=== PATIENT | male | born 1965 | race Caucasian/White ===

== ENCOUNTER 2016-10-21 17:34 | Emergency (ER) | payer OTHER ==
[2016-10-21 17:46] VITALS: BP 140/76; PULSE 97; RESP 18; TEMP 97.7
--- NOTE | 2016-10-21 17:57 | ED ---
General Adult HPI - General Chief complaint: Extremity Injury, Lower Stated complaint: Fall, ankle pain Time Seen by Provider: 10/21/16 17:35 Source: patient, RN notes reviewed Mode of arrival: ambulatory Limitations: no limitations - History of Present Illness Initial comments: This is a 51-year-old male presents with right ankle pain after his foot fell through a pallet today at work. Patient states he was walking when the pallet broke. Patient states he pulled a splinter out of the lateral aspect of his right ankle. Patient states he is able to ambulate but it's slightly painful. Patient states she is concerned that there may be more wood stuck in his ankle. Patient is up-to-date on his tetanus shot. Patient denies any numbness/ tingling or weakness.Patient denies any recent fever, chills, shortness breath, chest pain, abdominal pain, nausea/vomiting/diarrhea, back pain, hematuria, headache, or visual changes, or any other complaints. - Related Data Home Medications Medication Instructions Recorded Confirmed Metoprolol Tartrate 25 mg PO BID 08/27/14 10/21/16 Disulfiram 250 mg PO DAILY 01/03/16 10/21/16 Disulfiram 500 mg PO DAILY 01/03/16 10/21/16 traMADol HCL [Ultram] 100 mg PO Q6H PRN 01/03/16 10/21/16 Previous Rx's Medication Instructions Recorded Diazepam [Valium] 5 mg PO DIRECTED #15 tab 01/03/16 Famotidine [Pepcid] 20 mg PO BID #60 tablet 01/03/16 Cephalexin [Keflex] 500 mg PO Q12HR 5 Days 10/21/16 Allergies Allergy/AdvReac Type Severity Reaction Status Date / Time No Known Allergies Allergy Verified 10/21/16 17:48 Review of Systems ROS Statement: Those systems with pertinent positive or pertinent negative responses have been documented in the HPI. ROS Other: All systems not noted in ROS Statement are negative. Past Medical History Past Medical History: Hypertension, Osteoarthritis (OA) Additional Past Medical History / Comment(s): SOME LIVER DAMAGE FROM HX OF ALCOHOL ABUSE, SCIATICA. History of Any Multi-Drug Resistant Organisms: None Reported Past Surgical History: Appendectomy, Hernia Repair, Orthopedic Surgery Additional Past Surgical History / Comment(s): rt wrist (fx) with surgical repair, repair of aneurysm left carotid artery (age 2), Left knee athroscopy x 2 , Umbilical Hernia (Aug 2014). Past Anesthesia/Blood Transfusion Reactions: No Reported Reaction Past Psychological History: Anxiety, Depression Additional Psychological History / Comment(s): Pt states he is on medication for anxiety. He states it helps somewhat. Pt lives with his mother. He is independent. He drives. Smoking Status: Current every day smoker Past Alcohol Use History: Daily, Heavy Additional Past Alcohol Use History / Comment(s): HX OF ALCOHOL ABUSE-last drank 01/03/16. Pt started smoking at age 16 yrs and smokes between 1 1/2 to 2 ppd. Past Drug Use History: None Reported - Past Family History Father Family Medical History: Coronary Artery Disease (CAD), Dementia, Hypertension Additional Family Medical History / Comment(s): Father at age 74 yrs. Mother Family Medical History: No Reported History Additional Family Medical History / Comment(s): Mother is healthy and is 78 yrs. old. Sister(s) Family Medical History: Cancer Additional Family Medical History / Comment(s): BREAST CA General Exam - General Exam Comments Initial Comments: General: The patient is awake and alert, in no distress, and does not appear acutely ill. Neck: The neck is supple, there is no tenderness or JVD. Cardiovascular: There is a regular rate and rhythm. No murmur, rub or gallop is appreciated. Respiratory: Lungs are clear to auscultation, respirations are non-labored, breath sounds are equal. No wheezes, stridor, rales, or rhonchi. Musculoskeletal: There is tenderness to palpation over the lateral aspect of the right ankle. There is no ecchymosis, swelling or erythema. Full range of motion, strength 5/5 and Sensation intact. Posterior tibial and dorsalis pedis pulses are 2+ bilaterally. Neurological: A&O x 3. CN II-XII intact, There are no obvious motor or sensory deficits. Coordination appears grossly intact. Speech is normal. Skin: There is an approximately 0.5 puncture wound with surrounding abrasion to the lateral aspect of the right ankle. No foreign body visualized. Skin is warm and dry and no rashes or lesions are noted. Psychiatric: Normal mood and affect. Limitations: no limitations Course Vital Signs 10/21/16 17:39 Temperature 97.7 F Pulse Rate 97 Respiratory 18 Rate Blood Pressure 140/76 O2 Sat by Pulse 97 Oximetry Medical Decision Making - Medical Decision Making This is a 51-year-old male presents with right ankle pain after falling through a pallet today. On physical exam there is approximately 0.5cm puncture wound with surrounding abrasion to the lateral aspect of the right ankle. There is tenderness to palpation over the lateral aspect of the right ankle. There is no ecchymosis, swelling or erythema. Full range of motion, strength 5/5 and Sensation intact. Posterior tibial and dorsalis pedis pulses are 2+ bilaterally. An x-ray of the right ankle is done and reviewed showing:Negative right ankle exam. Reported by Dr. Kelsey. The wound was flushed and cleansed with normal saline. No foreign body noted. Steri strips were applied over the wound. Discussed Neosporin to the area. I discussed signs and symptoms of infection. I discussed rest, ice, elevate and Tylenol/Motrin for pain. Patient states he takes tramadol at home. I discussed occult fracture. I discussed Aircast for possible ankle sprain but patient refused this and patient also refused an Yousif wrap. I discussed return parameters. Patient is up-to-date on his tetanus shot.Discussed that patient should follow up with PCP in one to 2 days or return to the EC for any worsening symptoms or for any further concerns. Patient was receptive to this plan and patient will be discharged home. Disposition Clinical Impression: Ankle sprain, Puncture wound Disposition: HOME SELF-CARE Condition: Good Instructions: Ankle Sprain (ED), Puncture Wound (ED) Additional Instructions: Please rest, ice, elevate and use Tylenol or Motrin for pain. Please finish entire course of antibiotics and keep Neosporin on the wound. Please keep wound clean and dry and covered.If symptoms do not improve in the next 7 days repeat x-rays may be needed to rule out occult fracture.Please use medication as discussed. Please follow-up with family doctor in the next 2 days of symptoms have not improved. Please return to emergency room if the symptoms increase or worsen or for any other concerns. Prescriptions: Cephalexin [Keflex] 500 mg PO Q12HR 5 Days Referrals: Nick Martinez DO [Primary Care Provider] - 1-2 days Time of Disposition: 18:15
--- NOTE | 2016-10-21 18:07 | XR ---
EXAMINATION TYPE: XR ankle complete RT DATE OF EXAM: 10/21/2016 6:02 PM COMPARISON: NONE HISTORY: Pain TECHNIQUE: 3 views FINDINGS: Ankle mortise is anatomic. I see no fracture nor dislocation. Joint spaces are normal. IMPRESSION: Negative right ankle exam.
== END 2016-10-21 18:22 | disposition home or self-care (01) ==
LOC: EC 17:34
DX: S93.401A Sprain of unspecified ligament of right ankle, initial encounter (principal); S91.031A Puncture wound without foreign body, right ankle, initial encounter; W17.89XA Other fall from one level to another, initial encounter; Y99.0 Civilian activity done for income or pay; F41.9 Anxiety disorder, unspecified; I10 Essential (primary) hypertension; F17.200 Nicotine dependence, unspecified, uncomplicated; Z79.899 Other long term (current) drug therapy
CPT/HCPCS: 99283

== ENCOUNTER 2017-03-07 06:28 | Day surgery (SDC) | payer OTHER ==
[2017-03-05 14:22] VITALS: BMI 23.6
[~2017-03-07 06:28] MED LIST: LACTATED RINGERS 1,000 ML IV SCH; LIDOCAINE 1% 20 ML VIAL (10MG/ML) FOR IV START INTRADERMA PRN; MOXIFLOXACIN HCL 0.5% DROPS 3 ML BTL OP ONE; TETRACAINE 0.5% OPHTH (PF) DROPS 4 ML BTL OP ONE; TIMOLOL 0.5% OPHTH SOLN (PF) 0.2 ML DROPERETTE OP ONE
[2017-03-07 06:42] VITALS: RESP 16; TEMP 98
[2017-03-07] MEDS: PHENYLEPHRINE 2.5% OPHTH DRP 2ML OP NR ×3 (06:57→07:07)
[2017-03-07] MEDS: CYCLOPENTOLATE 1% OPHTH SOLN 2 ML BTL OP ONE ×3 (07:00→07:09)
[2017-03-07] MEDS ORDERED: MIDAZOLAM 2 MG/2 ML VIAL ONE (07:21)
[2017-03-07] MEDS ORDERED: fentaNYL (PF) 50 MCG/ML 2 ML AMP ONE (07:21)
[2017-03-07] MEDS ORDERED: EPINEPHrine (PF) 0.3 ML in BALANCED SALT IRRIG SOLN COMB2 500 ML IRRIGATION ONE (07:22)
[2017-03-07] MEDS ORDERED: DUOVISC KIT (GREEN BOX) INTRAOCULA ONE (07:28)
[2017-03-07] MEDS ORDERED: LIDOCAINE 1% (PF) 10MG/ML VIAL MISCELLANE ONE (07:28)
[2017-03-07] MEDS ORDERED: BALANCED SALT IRRIG SOLN COMB2 15 ML IRRIG.SOLN INTRAOCULA ONE (07:28)
--- NOTE | 2017-03-07 07:54 | P.OP ---
Date of Procedure: 03/07/17 Preoperative Diagnosis: NS & PSC Postoperative Diagnosis: same Procedure(s) Performed: PIOL OS Implants: PCB0 27.00 Anesthesia: MAC Surgeon: Fredy Pascal Estimated Blood Loss (ml): 0 Pathology: none sent Condition: stable Disposition: same day Indications for Procedure: blurry vision Operative Findings: no complications Description of Procedure:
[2017-03-07 08:12] VITALS: BP 132/85; PULSE 93
--- NOTE | 2017-03-08 11:13 | OP ---
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 POSTOPERATIVE DIAGNOSIS: Same. OPERATION: Phacoemulsification of cataract and intraocular lens implant to the left eye. ESTIMATED BLOOD LOSS: Zero. SPECIMEN TAKEN: None. NARRATIVE: After obtaining the appropriate consent, the patient was brought to the Operating Room where the patient was placed under cardiac monitoring and prepped and draped in the usual sterile manner. At the 11 oclock position a 15 degree super sharp blade was used to create a paracentesis followed by instillation of 1% Xylocaine MPF 50:50 mix with BSS into the anterior chamber. This was followed by Duovisc to stabilize the anterior chamber. At the 9 o clock position a self-sealing corneal flap incision was created using 2.8 mm lina keratome. A cystatome was used to initiate a continuous tear capsulorrhexis which was completed with the Utrata forceps. A Binkhorst cannula was used to hydrodissect the lens nucleus followed by hydrodelineation. Phacoemulsification of the lens was performed utilizing phacochop in 1.15 seconds at 7% power. The remaining cortical material was removed using the irrigation aspiration mode followed by additional 1% Xylocaine MPF into the anterior chamber followed by viscoelastic to stabilize the capsular bag. An [id number] 27.0 diopters posterior chamber lens was placed into the capsular bag without difficulty. The remaining viscoelastic material was removed from the anterior chamber with the irrigation/aspiration. Balanced salt solution was used to normalize the intraocular pressure. The incision was checked for watertight integrity. The patient then received two drops of 0.5% timolol followed by two drops Vigamox, was lightly patched and shielded in the usual manner. There were no complications from the procedure. The patient tolerated the procedure well and was returned to recovery in good condition. JANICE
== END 2017-03-07 08:39 | disposition home or self-care (01) ==
LOC: OR 06:28
PROVIDERS: ATTEND Ophthalmology
DX: H25.12 Age-related nuclear cataract, left eye (principal); H25.042 Posterior subcapsular polar age-related cataract, left eye; H53.142 Visual discomfort, left eye; H18.51 Endothelial corneal dystrophy; I10 Essential (primary) hypertension; F41.9 Anxiety disorder, unspecified; F32.9 Major depressive disorder, single episode, unspecified; M19.90 Unspecified osteoarthritis, unspecified site; F17.200 Nicotine dependence, unspecified, uncomplicated; Z79.891 Long term (current) use of opiate analgesic; Z79.899 Other long term (current) drug therapy
CPT/HCPCS: 66984; J2250; J0171; J3010; J2001

== ENCOUNTER 2017-03-27 00:06 | Emergency (ER) | payer OTHER ==
[2017-03-27] MEDS ORDERED: SODIUM CHLORIDE 0.9% 2,000 ML IV STA (00:18)
[2017-03-27] MEDS ORDERED: KETOROLAC 30 MG/ML 1 ML VIAL IVP STA (00:18)
[2017-03-27] MEDS ORDERED: MORPHINE SULFATE 4 MG/ML SYRINGE IV STA (00:18)
[2017-03-27 00:54] LABS: Basophils % (A) 0 %; CH 30.6; CHCM 34.2; Eosinophils # (A) 0.1 k/uL (0-0.7); Eosinophils % (A) 1 %; HCT 46.8 % (39.0-53.0); HDW 2.67; HGB 15.1 gm/dL (13.0-17.5); Luc # (Auto) 0.32; Luc % (Auto) 3; Lymphocytes # (A) 1.5 k/uL (1.0-4.8); Lymphocytes % (A) 16 %; MCHC 32.2 g/dL (31.0-37.0); MCV 90.1 fL (80.0-100.0); Mean Platelet Volume 7.1; Monocytes # (A) 0.7 k/uL (0-1.0); Monocytes % (A) 7 %; Neutrophils % (A) 72 %; RDW 15.3 % (11.5-15.5); WBC 9.6 k/uL (3.8-10.6)
[2017-03-27 01:04] LABS: ALT 33 U/L (21-72); AST 32 U/L (17-59); Alkaline Phosphatase 131 U/L (38-126); Amylase <30 U/L (30-110); Anion Gap 13 mmol/L; Blood Urea Nitrogen 23 mg/dL (9-20); Calcium 9.3 mg/dL (8.4-10.2); Carbon Dioxide 26 mmol/L (22-30); Chloride 100 mmol/L (98-107); Glucose 86 mg/dL (74-99); Non-African American GFR(MDRD) >60 (>60 ml/min/1.73 sqM); Potassium 3.4 mmol/L (3.5-5.1); Sodium 139 mmol/L (137-145); Total Protein 6.8 g/dL (6.3-8.2)
--- NOTE | 2017-03-27 01:12 | XR ---
EXAM: XR Abdomen Complete, 2 or More Views CLINICAL HISTORY: Reason: Pain TECHNIQUE: Frontal view of the abdomen/pelvis with upright view of the abdomen. COMPARISON: 01/02/16 FINDINGS: Intraperitoneal space: Prominent focal hyperdensity seen within the right pelvis, possibly vascular calcification. Gastrointestinal tract: Unremarkable. No dilation. Bones/joints: Multilevel degenerative changes of the spine. IMPRESSION: Prominent focal hyperdensity seen within the right pelvis, possibly vascular calcification.
[2017-03-27 02:11] VITALS: RESP 18
[2017-03-27] MEDS ORDERED: HYDROmorphone 1 MG/ML 1 ML SYRINGE IVP STA (02:16)
[2017-03-27 02:58] LABS: Appearance,Urine Clear (Clear); Bilirubin,Urine 1+ (Negative); Glucose,Urine (UA) Negative (Negative); Leukocyte Esterase,Urine Negative (Negative); Nitrite,Urine Negative (Negative); Protein,Urine Trace (Negative); Specific Gravity,Urine 1.018 (1.001-1.035); UA Billing (MACRO vs. MICRO) CHEM; Urobilinogen,Urine <2.0 mg/dL (<2.0)
[2017-03-27] MEDS ORDERED: RX INFO: IV CONTRAST WAS GIVEN 1 EACH MISC MISCELLANE PRN (03:04)
[2017-03-27 03:36] VITALS: PULSE 81
[2017-03-27 03:46] LABS: Ketones,Urine 2+ (Negative)
--- NOTE | 2017-03-27 03:56 | CT ---
EXAM: CT Abdomen and Pelvis With Intravenous Contrast CLINICAL HISTORY: Reason: Right flank abd pain, dark colored urine, possible dehydration, hx of umbilical hernia repair and appy TECHNIQUE: Axial computed tomography images of the abdomen and pelvis with intravenous contrast. CTDI is 5.3 mGy and DLP is 257.4 mGy-cm. Axial delayed images were also obtained. CTDI is 5.3 mGy and DLP is 133.2 mGy- cm. This CT exam was performed using one or more of the following dose reduction techniques: automated exposure control, adjustment of the mA and/or kV according to patient size, and/or use of iterative reconstruction technique. Coronal and sagittal reformatted images were created and reviewed. COMPARISON: CT 12/29/15 FINDINGS: Lower thorax: Bibasilar atelectasis. ABDOMEN: Liver: Unremarkable. No mass. Gallbladder and bile ducts: Unremarkable. No calcified stones. No ductal dilation. Pancreas: Unremarkable. No mass. No ductal dilation. Spleen: Unremarkable. No splenomegaly. Adrenals: Unremarkable. No mass. Kidneys and ureters: Unremarkable. No solid mass. No hydronephrosis. Stomach and bowel: Few colonic diverticula without diverticulosis. Appendix: Surgical clips from previous appendectomy. PELVIS: Bladder: Mild thickening possibly due to underdistention. No mass. Reproductive: Unremarkable as visualized. ABDOMEN and PELVIS: Intraperitoneal space: Unremarkable. No free air. No significant fluid collection. Bones/joints: Multilevel degenerative changes of the spine. Prominent disc disease seen at L3/L4 and L4/L5 causing a degree of central stenosis. Soft tissues: Unremarkable. 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 Extensive atherosclerosis. Lymph nodes: Unremarkable. No enlarged lymph nodes. IMPRESSION: 1. 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 2. Multilevel degenerative changes of the spine. Prominent disc disease seen at L3/L4 and L4/L5 causing a degree of central stenosis. 3. Few colonic diverticula without diverticulosis. 4. Mild bladder thickening possibly due to underdistention. Correlate for cystitis.
[2017-03-27] MEDS ORDERED: MAG HYDROX/AL HYDROX/SIMETH 30 ML, HYOSCYAMINE ELIXIR 10 ML, CIMETIDINE HCL 300 MG, LID... PO STA ×4 (04:39)
--- NOTE | 2017-03-27 04:40 | ED ---
Abdominal Pain HPI - General Chief Complaint: Abdominal Pain Stated Complaint: dehydration Time Seen by Provider: 03/27/17 00:18 Source: patient, RN notes reviewed, old records reviewed Mode of arrival: EMS Limitations: no limitations - History of Present Illness Initial Comments: This is a 51 year old male presenting via EMS with CC of dehydration. Patient reports that he has not been having an appetitie for 2 weeks. He reports that he noticed that he was producing dark urine over the past day. Denies vomiting or diarrhea, patient reports that he started to develop abdominal pain yesterday. Patient reports that he is under some stress at home, and that he has probably been taking too much of his pain medication. He reports he was a previous alcoholic, and has been recovering for the past year. Patient states that he has no fever, chills, chest pain, shortness of breath. His abodiminal pain is in RUQ and occasionally radites to the back. Denies any surgical history. - Related Data Home Medications Medication Instructions Recorded Confirmed Metoprolol Tartrate 25 mg PO BID 08/27/14 03/27/17 Disulfiram 250 mg PO 1200 01/03/16 03/27/17 traMADol HCL [Ultram] 50 mg PO Q6H PRN 01/03/16 03/27/17 Gabapentin [Neurontin] 800 mg PO TID 03/05/17 03/27/17 Previous Rx's Medication Instructions Recorded Omeprazole 40 mg PO DAILY #20 capsule. 03/27/17 Allergies Allergy/AdvReac Type Severity Reaction Status Date / Time No Known Allergies Allergy Verified 03/27/17 00:14 Review of Systems ROS Statement: Those systems with pertinent positive or pertinent negative responses have been documented in the HPI. ROS Other: All systems not noted in ROS Statement are negative. Past Medical History Past Medical History: Hypertension, Osteoarthritis (OA) Additional Past Medical History / Comment(s): SOME LIVER DAMAGE FROM HX OF ALCOHOL ABUSE, SCIATICA. History of Any Multi-Drug Resistant Organisms: None Reported Past Surgical History: Appendectomy, Hernia Repair, Orthopedic Surgery Additional Past Surgical History / Comment(s): rt wrist (fx) with surgical repair, repair of aneurysm left carotid artery (age 2), Left knee athroscopy x 2 , Umbilical Hernia (Aug 2014). Past Anesthesia/Blood Transfusion Reactions: No Reported Reaction Past Psychological History: Anxiety, Depression Smoking Status: Current every day smoker Past Alcohol Use History: None Reported Past Drug Use History: None Reported - Past Family History Father Family Medical History: Coronary Artery Disease (CAD), Dementia, Hypertension Additional Family Medical History / Comment(s): Father at age 74 yrs. Mother Family Medical History: No Reported History Additional Family Medical History / Comment(s): Mother is healthy and is 78 yrs. old. Sister(s) Family Medical History: Cancer Additional Family Medical History / Comment(s): BREAST CA General Exam - General Exam Comments Initial Comments: Patient is a 51 year old male, no distress. Limitations: no limitations General appearance: alert, in no apparent distress Head exam: Present: atraumatic, normocephalic, normal inspection Eye exam: Present: normal appearance, PERRL, EOMI. Absent: scleral icterus, conjunctival injection, periorbital swelling ENT exam: Present: normal exam, mucous membranes moist Neck exam: Present: normal inspection. Absent: tenderness, meningismus, lymphadenopathy Respiratory exam: Present: normal lung sounds bilaterally. Absent: respiratory distress, wheezes, rales, rhonchi, stridor Cardiovascular Exam: Present: regular rate, normal rhythm, normal heart sounds. Absent: systolic murmur, diastolic murmur, rubs, gallop, clicks GI/Abdominal exam: Present: soft, tenderness (RUQ tenderness and epigastric tenderness. ), normal bowel sounds. Absent: distended, guarding, rebound, rigid Extremities exam: Present: normal inspection, full ROM, normal capillary refill. Absent: tenderness, pedal edema, joint swelling, calf tenderness Back exam: Present: normal inspection Neurological exam: Present: alert, oriented X3, CN II-XII intact Psychiatric exam: Present: normal affect, normal mood Skin exam: Present: warm, dry, intact, normal color. Absent: rash Course Vital Signs 03/27/17 03/27/17 03/27/17 00:11 02:10 03:35 Temperature 97.2 F L Pulse Rate 94 80 81 Respiratory 16 18 18 Rate Blood Pressure 144/93 165/102 166/97 O2 Sat by Pulse 95 94 L 97 Oximetry 03/27/17 05:23 Temperature 97.1 F L Pulse Rate 81 Respiratory 18 Rate Blood Pressure 166/99 O2 Sat by Pulse 95 Oximetry Medical Decision Making - Medical Decision Making This is a 51 year old male presenting via EMS with CC of dehydration. Patient reports that he has not been having an appetitie for 2 weeks. He reports that he noticed that he was producing dark urine over the past day. Denies vomiting or diarrhea, patient reports that he started to develop abdominal pain yesterday. Patient received IV fluids, lab work obtained. Patient given 2L of fluids. He is tender over R. flank and RUQ area. Patient labs were benign, however he does have bilirubin in urine. Patient CT abdomen and pelvis was reviewed. CT shows Mild to moderate stenosis of left common iliac artery, Degenerative changes of the spine, prominent disc disease L3/L4 and L4/L5. Few diverticula, without diverticulitis. Bladder thickening due to under distention. There is no CT finding correlating with patient symptoms. Toward the end of EC stay, Patient relates that he has been taking too much pain medication over the past few days. I believe that patient pain is likely related to gastric or duodenal ulcer, patient given GI cocktail, and will be discharged with omeprazole. Instructed clear liquies and follow up with PCP tomorrow. Return parameters discussed. - Lab Data Result diagrams: 03/27/17 00:43 03/27/17 00:43 Lab Results 03/27/17 03/27/17 03/27/17 Range/Units 00:43 00:43 02:38 WBC 9.6 (3.8-10.6) k/uL RBC 5.20 (4.30-5.90) m/uL Hgb 15.1 (13.0-17.5) gm/dL Hct 46.8 (39.0-53.0) % MCV 90.1 (80.0-100.0) fL MCH 29.0 (25.0-35.0) pg MCHC 32.2 (31.0-37.0) g/dL RDW 15.3 (11.5-15.5) % Plt Count 383 (150-450) k/uL Neutrophils % 72 % Lymphocytes % 16 % Monocytes % 7 % Eosinophils % 1 % Basophils % 0 % Neutrophils # 7.0 (1.3-7.7) k/uL Lymphocytes # 1.5 (1.0-4.8) k/uL Monocytes # 0.7 (0-1.0) k/uL Eosinophils # 0.1 (0-0.7) k/uL Basophils # 0.0 (0-0.2) k/uL Sodium 139 (137-145) mmol/L Potassium 3.4 L (3.5-5.1) mmol/L Chloride 100 (98-107) mmol/L Carbon Dioxide 26 (22-30) mmol/L Anion Gap 13 mmol/L BUN 23 H (9-20) mg/dL Creatinine 0.70 (0.66-1.25) mg/dL Est GFR (MDRD) Af Amer >60 (>60 ml/min/1.73 sqM) Est GFR (MDRD) Non-Af >60 (>60 ml/min/1.73 sqM) Glucose 86 (74-99) mg/dL Calcium 9.3 (8.4-10.2) mg/dL Total Bilirubin 1.0 (0.2-1.3) mg/dL AST 32 (17-59) U/L ALT 33 (21-72) U/L Alkaline Phosphatase 131 H (38-126) U/L Total Protein 6.8 (6.3-8.2) g/dL Albumin 3.9 (3.5-5.0) g/dL Amylase <30 L (30-110) U/L Lipase 17 L (23-300) U/L Urine Color Yellow Urine Appearance Clear (Clear) Urine pH 7.0 (5.0-8.0) Ur Specific Elsie 1.018 (1.001-1.035) Urine Protein Trace H (Negative) Urine Glucose (UA) Negative (Negative) Urine Ketones 2+ H (Negative) Urine Blood Negative (Negative) Urine Nitrite Negative (Negative) Urine Bilirubin 1+ H (Negative) Urine Urobilinogen <2.0 (<2.0) mg/dL Ur Leukocyte Esterase Negative (Negative) - Radiology Data Radiology results: report reviewed CT shows Mild to moderate stenosis of left common iliac artery, Degenerative changes of the spine, prominent disc disease L3/L4 and L4/L5. Few diverticula, without diverticulitis. Bladder thickening due to under distention. KUB shows hyperdense area on Right pelvis. Disposition Clinical Impression: Dehydration, Gastritis Disposition: HOME SELF-CARE Condition: Good Instructions: Gastritis (ED) Additional Instructions: Patient is to rest, increase her fluid intake. Clear liquid diet for the next 12-24 hours and then slowly advance her diet. Patient needs to take medications as prescribed. Follow-up with primary care provider within the next 1-2 days. Prescriptions: Omeprazole 40 mg PO DAILY #20 capsule. Referrals: Nick Martinez DO [Primary Care Provider] - 1-2 days Time of Disposition: 04:39
[2017-03-27 05:24] VITALS: BP 166/99; TEMP 97.1
== END 2017-03-27 05:23 | disposition home or self-care (01) ==
LOC: EC 00:06
DX: E86.0 Dehydration (principal); K29.70 Gastritis, unspecified, without bleeding; M47.817 Spondylosis without myelopathy or radiculopathy, lumbosacral region; I10 Essential (primary) hypertension; F17.200 Nicotine dependence, unspecified, uncomplicated; Z90.49 Acquired absence of other specified parts of digestive tract; Z98.890 Other specified postprocedural states; Z79.899 Other long term (current) drug therapy
CPT/HCPCS: 36415; 80053; 82150; 83690; 85025; 81003; 74000; 74177; 99285; 96374; 96375 ×2; 96361 ×2; J2270; J1885; J1170; Q9967

== ENCOUNTER → 2017-04-13 | Outpatient (CLI) | payer OTHER ==
--- NOTE | 2017-04-13 16:38 | MR ---
EXAMINATION TYPE: MR lumbar spine wo con DATE OF EXAM: 04/13/2017 COMPARISON: NONE HISTORY: Low back and left hip pain x 5 years TECHNIQUE: Multiplanar, multisequence images of the lumbar spine were acquired. L1-L2: There is flattening of the disc normal concavity and mild intervertebral disc desiccation rela ting to a broad-based disc bulge creating mild bilateral neural foraminal narrowing. No spinal canal stenosis at this level. L2-L3: Annular tear is seen within a broad-based disc bulge, slightly eccentric to the right resultin g in moderate right neural foraminal narrowing and mild left neural foraminal narrowing in combinatio n with facet arthropathy and ligamentum flavum buckling. Mild spinal canal stenosis is present as a r esult. L3-L4: Broad-based disc bulge with right paracentral annular tear creates moderate bilateral neural f oraminal narrowing and moderate spinal canal stenosis and combination with facet arthropathy and liga mentum flavum buckling. L4-L5: Central disc protrusion superimposed upon a broad-based disc bulge examination with facet arth ropathy and ligamentum flavum buckling create moderate left neural foramen narrowing and severe right neural foraminal narrowing. Mild spinal canal stenosis is seen as a result of the above findings. L5-S1: Right eccentric broad-based disc bulge is present crating mild right neural foraminal narrowin g. Left neural foramen is patent. No spinal canal stenosis. Lumbar segments are intact. No paraspinal masses are identified. Conus medullaris has a normal appe arance. IMPRESSION: 1. Central disc herniation superimposed upon a broad-based disc bulge at L4-L5 that in combination wi th facet arthropathy and ligamentum flavum buckling create severe right neural foraminal narrowing an d moderate left neural foraminal narrowing as well as mild spinal canal stenosis. 2. Multilevel degenerative disc disease most pronounced at L2-L4 with broad-based disc bulges at thes e levels resulting in mild spinal canal stenosis at L2-L3 and moderate spinal canal stenosis at L3-L4 . 3. Variable degree of neuroforaminal narrowing as a result of degenerative disc disease as described above.
== END | disposition home or self-care (01) ==
LOC: RADMRIMAIN 15:06
PROVIDERS: ATTEND Family Medicine
DX: M48.06 Spinal stenosis, lumbar region (principal); M51.26 Other intervertebral disc displacement, lumbar region; M99.73 Connective tissue and disc stenosis of intervertebral foramina of lumbar region; M51.36 Other intervertebral disc degeneration, lumbar region; M53.86 Other specified dorsopathies, lumbar region
CPT/HCPCS: 72148

== ENCOUNTER → 2017-06-19 | Outpatient (CLI) | payer OTHER ==
--- NOTE | 2017-06-19 12:38 | ECHOS ---
Referral Reason:[id number] Syncope and collapse MEASUREMENTS -------- HEIGHT: 177.8 cm WEIGHT: 74.8 kg BP: 107/88 WallScoring: string WallScoring: string WallScoring: string FINDINGS -------- Utilizing the standard Eddie protocol the patient was exercised for 6 minutes, 0 seconds, achievin g a maximum heart rate of 127 , which is 76 % of predicted maximal heart rate. There was physiolo gic heart rate and blood pressure response to exercise. Max Heart Rate: 127 % of Max Predicted Heart Rate: 76% Rest Heart Rate: 97 Rest BP: 107/88 Max BP : 156/79 Mets Achieved: 7.1 The test was stopped because of fatigue. Test stopped at practitioner's discretion. This level of exercise represents a fair exercise tolerance for age. Sinus rhythm. In response to stress, the ECG showed no ST-T wave changes (see exercise report for details). In response to stress, the ECG showed no ST-T wave changes (see exercise report for details). There were normal blood pressure and heart rate responses to stress. LV size, wall thickness and systolic function are normal, with an EF of 60%. Echo images were acquired at peak stress which demonstrated appropriate augmentation of all left vent ricular segments. The patient did not achieve 85% MPHR, at the rate achieved there was no evidence of ischemia. CONCLUSIONS -------- 1. Utilizing the standard Eddie protocol the patient was exercised for 6 minutes, 0 seconds, achie ving a maximum heart rate of 127 , which is 76 % of predicted maximal heart rate. There was physi ologic heart rate and blood pressure response to exercise. 2. This level of exercise represents a fair exercise tolerance for age. 3. No 2D echocardiographic evidence of inducible ischemia to achieved workload. 4. The patient did not achieve 85% MPHR, at the rate achieved there was no evidence of ischemia. TUFTER OPERATOR: Babak Freedman RDCS
== END ==
LOC: RADNMMAIN 09:03
PROVIDERS: ATTEND Family Medicine
DX: R55 Syncope and collapse (principal)
CPT/HCPCS: 93017; 93350

== ENCOUNTER 2017-06-20 06:53 | Day surgery (SDC) | payer OTHER ==
[2017-06-18 17:49] VITALS: BMI 23.6
[~2017-06-20 06:53] MED LIST changes: -LIDOCAINE 1% 20 ML VIAL (10MG/ML) FOR IV START INTRADERMA PRN
[2017-06-20] MEDS: PHENYLEPHRINE 2.5% OPHTH DRP 2ML OP NR ×3 (07:16→07:25)
[2017-06-20] MEDS ORDERED: LIDOCAINE 1% 20 ML VIAL (10MG/ML) FOR IV START INTRADERMA ONE (07:27)
[2017-06-20] MEDS: CYCLOPENTOLATE 1% OPHTH SOLN 2 ML BTL OP ONE ×2 (07:28→07:35)
[2017-06-20] MEDS ORDERED: MIDAZOLAM 2 MG/2 ML VIAL ONE (07:59)
[2017-06-20] MEDS ORDERED: DUOVISC KIT (GREEN BOX) INTRAOCULA ONE (07:59)
[2017-06-20] MEDS ORDERED: BALANCED SALT IRRIG SOLN COMB2 15 ML IRRIG.SOLN INTRAOCULA ONE (07:59)
[2017-06-20] MEDS ORDERED: LIDOCAINE 1% (PF) 10MG/ML VIAL MISCELLANE ONE (07:59)
[2017-06-20] MEDS ORDERED: fentaNYL (PF) 50 MCG/ML 2 ML AMP ONE (07:59)
[2017-06-20] MEDS ORDERED: EPINEPHrine (PF) 0.3 ML in BALANCED SALT IRRIG SOLN COMB2 500 ML IRRIGATION ONE (08:01)
--- NOTE | 2017-06-20 08:24 | P.OP ---
Date of Procedure: 06/20/17 Preoperative Diagnosis: nuclear sclerosis Postoperative Diagnosis: same Procedure(s) Performed: PIOL, OD Implants: PCB00 +26.00 Anesthesia: MAC Surgeon: Fredy Pascal Estimated Blood Loss (ml): 0 Pathology: none sent Condition: stable Disposition: same day Indications for Procedure: blurry vision Operative Findings: no complications
[2017-06-20 08:29] VITALS: RESP 16
[2017-06-20 08:53] VITALS: BP 125/80; PULSE 76
--- NOTE | 2017-06-21 11:30 | OP ---
OPERATIVE REPORT DATE OF SERVICE: 06/20/2017. PROCEDURE: Phacoemulsification of cataract and intraocular lens implant of the right eye. PREOPERATIVE DIAGNOSIS: Nuclear sclerosis. POSTOPERATIVE DIAGNOSIS:: Nuclear sclerosis. ESTIMATED BLOOD LOSS:: Zero. SPECIMEN TAKEN:: None. NARRATIVE:: After obtaining the appropriate consent, the patient was brought to the Operating Room where the patient was placed under cardiac monitoring and prepped and draped in the usual sterile manner. At the 11 o'clock position a 15 degree super sharp blade was used to create a paracentesis followed by instillation of 1% Xylocaine MPF 50:50 mix with BSS into the anterior chamber. This was followed by Duovisc to stabilize the anterior chamber. At the 9 o'clock position, a self-sealing corneal flap incision was created using 2.8 mm ilna keratome. A cystatome was used to initiate a continuous tear capsulorrhexis which was completed with the Utrata forceps. A Binkhorst cannula was used to hydrodissect the lens nucleus followed by hydrodelineation. Phacoemulsification of the lens was performed utilizing phacochop in 3.57 seconds at 8% power. The remaining cortical material was removed using the irrigation aspiration mode followed by additional 1% Xylocaine MPF into the anterior chamber followed by viscoelastic to stabilize the capsular bag. An [id number] 26.0 diopter posterior chamber lens was placed into the capsular bag without difficulty. The remaining viscoelastic material was removed from the anterior chamber with the irrigation/aspiration. Balanced salt solution was used to normalize the intraocular pressure. The incision was checked for watertight integrity. The patient then received two drops of 0.5% timolol followed by two drops Vigamox, was lightly patched and shielded in the usual manner. There were no complications from the procedure. The patient tolerated the procedure well and was returned to recovery in good condition. MMODL / IJN: [id number] /
== END 2017-06-20 09:12 | disposition home or self-care (01) ==
LOC: OR 06:53
PROVIDERS: ATTEND Ophthalmology
DX: H25.11 Age-related nuclear cataract, right eye (principal); I10 Essential (primary) hypertension; F41.9 Anxiety disorder, unspecified; F32.9 Major depressive disorder, single episode, unspecified; F17.200 Nicotine dependence, unspecified, uncomplicated; M19.90 Unspecified osteoarthritis, unspecified site; Z83.518 Family history of other specified eye disorder; Z79.899 Other long term (current) drug therapy
CPT/HCPCS: 66984; C1780; J2250; J0171; J3010; J2001